=== PATIENT | male | born 1950 | race Caucasian/White ===

== ENCOUNTER 2016-10-26 17:45 | Emergency (ER) | payer MEDICARE, OTHER ==
[~2016-10-26] VITALS: Ht 185.4 cm; Wt 105.9 kg
[~2016-10-26 17:45] MED LIST: /LABE20TA; AMLO10TA; AMLO10TAB; ANTI50TA; ASPI325T; ASPI81TA83; CLAR5CHW; COLA100C2; CRES20TA; CRES40TA; ECOT325T5; FIORICET; FLEXERIL; HYDR25TA6; KLON1TAB; LISI40TA; PRIL40CA; PRIN20TA3; VICO5TAB; [UNRECOGNIZED DRUG - OTHER]
[2016-10-26 18:30] VITALS: BP 144/71
[2016-10-26] MEDS ORDERED: CARVedilol 12.5 MG TAB PO ONE (18:30)
[2016-10-26 18:39] LABS: BASO % 0.8 % (0.0-1.0); EOS % 0.7 % (0.0-3.0); LARGE UNSTAINED CELL # 0.2 K/mm3 (0.0-0.4); LYMPH # 2.3 K/mm3 (1.5-4.5); LYMPH % 44.1 % (24.0-44.0); MEAN CORPUSCULAR HEMOGLOBIN 31.7 pg (27.0-33.0); MEAN CORPUSCULAR VOLUME 90.6 fl (80.0-96.0); MONO # 0.3 K/mm3 (0.0-0.8); NEUTROPHILS # 2.3 K/mm3 (1.8-7.7); NEUTROPHILS % 45.3 % (36.0-66.0); PLATELET COUNT, AUTOMATED 216 k/mm3 (150-450); WHITE BLOOD COUNT 5.2 K/mm3 (4.0-10.0)
[2016-10-26] MEDS ORDERED: AMLO10TA2 PO (18:55)
[2016-10-26] MEDS ORDERED: CARV12.5 PO (18:55)
[2016-10-26] MEDS ORDERED: OMEP40CA2 PO (18:55)
[2016-10-26] MEDS ORDERED: CARV3.12 PO (18:55)
[2016-10-26] MEDS ORDERED: GLIP10TA6 PO (18:55)
[2016-10-26 19:04] LABS: ALBUMIN 4.2 GM/DL (3.2-5.2); ALBUMIN/GLOBULIN RATIO 1.14 (1.00-1.93); ALKALINE PHOSPHATASE 91 U/L (45-117); ALT/SGPT 35 U/L (12-78); ANION GAP 8 MEQ/L (8-16); AST/SGOT 15 U/L (15-37); BILIRUBIN,DIRECT 0.1 MG/DL (0.0-0.2); BILIRUBIN,TOTAL 0.6 MG/DL (0.2-1.0); BLOOD UREA NITROGEN 17 MG/DL (7-18); CARBON DIOXIDE LEVEL 28 MEQ/L (21-32); CHLORIDE LEVEL 99 MEQ/L (98-107); GLOMERULAR FILTRATION RATE 54.1 (>49); GLUCOSE, FASTING 281 MG/DL (80-110); POTASSIUM SERUM 3.8 MEQ/L (3.5-5.1); SODIUM LEVEL 135 MEQ/L (136-145); TOTAL PROTEIN 7.9 GM/DL (6.4-8.2)
--- NOTE | 2016-10-26 19:27 | REP ---
LEFT SHOULDER SERIES: Three views of the left shoulder are performed. There is no acute fracture or dislocation. Rounded calcific density projects in a widened acromioclavicular joint. This could represent an old fracture or old postsurgical changes. IMPRESSION: No acute fracture or dislocation. There appear to be old posttraumatic or postsurgical changes at the acromioclavicular joint. Signed by Beck Chun MD 10/26/2016 07:51 P
--- NOTE | 2016-10-26 19:40 | REPUSA ---
CLINICAL HISTORY: Neck pain. TECHNIQUE: Multiple axial images were obtained through the cervical spine. Images were also reconstru cted in coronal and sagittal planes. The study was performed without IV contrast. COMMENTS: Status post anterior cervical fusion at C3-C7. Hardware appears intact. There is no fracture or spondylolisthesis visualized. The paraspinal soft tissues are unremarkable. T here are no lytic or blastic lesions. Straightening of cervical lordosis is seen. There is evidence of minimal multilevel disk disease, dem onstrated by minimal osteophytosis and endplate sclerosis. No significant disk herniation is noted at any level. Canal and foramina remain patent. IMPRESSION: 1. No fracture or spondylolisthesis. 2. Straightening of cervical lordosis is seen, suggesting muscular spasm. 3. Minimal multilevel spondylosis. 4. Status post anterior cervical fusion at C3-C7. Hardware appears intact. Thank you for your kind referral of this patient.
[2016-10-26] MEDS ORDERED: NS 500 ML IV ONE (20:45)
[2016-10-26] MEDS ORDERED: CYCLOBENZAPRINE 10 MG TAB PO ONE (20:45)
[2016-10-26] MEDS ORDERED: ANEXSIA, NORCO 7.5MG/325MG TABLET(HYDROCODONE/APAP) PO ONE (20:45)
[2016-10-26] MEDS ORDERED: CYCL5TA PO (20:59)
[2016-10-26] MEDS ORDERED: NORCO 5/325MG TABLET (BULK FOR ED) PO ONE (21:00)
[2016-10-26 21:27] VITALS: BP 142/79
--- NOTE | 2016-10-27 09:27 | ECGEPIP ---
Stationary ECG Study [facility] - ED Test Date: 2016-10-26 Pat Name: TAMMY VILLELA Department: Room: - Gender: M Mechanic Welder: pamela : 1950 Requested By: Pratibha Linares Order Number: [id number] Reading MD: Pratibha Linares Measurements Intervals [place] Rate: 121 P: [place]: 0 QRS: 159 QRSD: 141 T: 11 QT: 337 QTc: 478 Interpretive Statements ATRIAL FIBRILLATION WITH RAPID VENTRICULAR RESPONSE RIGHT BUNDLE BRANCH BLOCK LEFT POSTERIOR FASCICULAR BLOCK NO PRIOR FOR COMPARISON Electronically Signed On 10-27-2016 9:27:00 EDT by Pratibha Linares
== END 2016-10-26 21:37 | disposition home or self-care (01) ==
LOC: M ED 18:31
DX: M79.602 Pain in left arm (principal); M62.838 Other muscle spasm; N17.9 Acute kidney failure, unspecified; I48.91 Unspecified atrial fibrillation; I10 Essential (primary) hypertension; E78.5 Hyperlipidemia, unspecified; K21.9 Gastro-esophageal reflux disease without esophagitis; H81.10 Benign paroxysmal vertigo, unspecified ear; G43.909 Migraine, unspecified, not intractable, without status migrainosus; Z95.1 Presence of aortocoronary bypass graft; Z79.82 Long term (current) use of aspirin